=== PATIENT | female | born 1960 | race Caucasian/White ===

== ENCOUNTER 2020-05-03 18:27 | Emergency (ER) | payer OTHER, BC ==
[~2020-05-03] VITALS: Ht 157.5 cm; Wt 88.5 kg
[2020-05-03 18:34] VITALS: Ht 157.5 cm; Wt 88.5 kg
[2020-05-03 19:53] VITALS: BP 126/54
== END 2020-05-03 19:53 | disposition home or self-care (01) ==
LOC: ED 18:27
DX: M54.6 Pain in thoracic spine (principal); E11.9 Type 2 diabetes mellitus without complications; V43.52XA Car driver injured in collision with other type car in traffic accident, initial encounter; Y93.I9 Activity, other involving external motion; Y92.488 Other paved roadways as the place of occurrence of the external cause; Y99.8 Other external cause status